=== PATIENT | male | born 1970 | race Native Hawaiian/Other Pacific Islander ===

== ENCOUNTER 2022-09-17 11:25 | Emergency (ER) | payer OTHER ==
[~2022-09-17] VITALS: Ht 175.3 cm; Wt 77.1 kg
[2022-09-17 11:40] VITALS: TEMP 97.8
[2022-09-17 11:45] VITALS: BP 154/96
[2022-09-17 12:20] LABS: PLATELET COUNT 212 K/uL (142-355)
[2022-09-17 12:28] LABS: SODIUM 138 mmol/L (136-145)
== END 2022-09-17 13:42 | disposition home or self-care (01) ==
LOC: ED 11:25
PROVIDERS: Family Medicine
DX: F41.0 Panic disorder [episodic paroxysmal anxiety] (principal); R06.4 Hyperventilation; R39.11 Hesitancy of micturition; F12.90 Cannabis use, unspecified, uncomplicated
CPT/HCPCS: 36415; 80053; 80307; 81002; 84484; 85027; 93005; 96372; 99283; J3360